=== PATIENT | female | born 1985 | race African-American/Black ===

== ENCOUNTER 2020-02-16 07:24 | Inpatient (IN) | payer BC, OTHER ==
[2020-02-16] MEDS ORDERED: WITCH HAZEL 50% (TUCKS) 40 PAD/JAR PAD TP PRN (08:08)
[2020-02-16] MEDS ORDERED: oxyCODONE HCL 5 MG TABLET PO PRN (08:08)
[2020-02-16] MEDS ORDERED: BENZOCAINE 20% 57 GM BOTTLE TP PRN (08:08)
[2020-02-16] MEDS ORDERED: BENZOCAINE 28 GM HEMORRHOIDAL OINTMENT TP PRN (08:08)
[2020-02-16] MEDS ORDERED: METHYLERGONOVINE MALEATE 0.2 MG/1 ML AMP IM PRN (08:08)
[2020-02-16] MEDS ORDERED: BISACODYL 10 MG SUPP.RECT RC PRN (08:08)
[2020-02-16] MEDS ORDERED: OXYTOCIN 30 UNITS in 0.9% NS 30 UNIT/500 ML INFUS.BAG IVPB SCH (08:15)
[2020-02-16] MEDS ORDERED: OXYTOCIN 20 UNITS in 0.9% NS 20 UNIT/1,000 ML INFUS.BAG IV SCH (08:15)
[2020-02-16] MEDS ORDERED: DEXTROSE 5%-LACTATED RINGERS 1,000 ML IV SCH (08:15)
[2020-02-16] MEDS ORDERED: AMPICILLIN - 2 GM in SODIUM CHLORIDE 100 ML IVPB ONE (08:30)
[2020-02-16 08:39] VITALS: BMI 27.4
[2020-02-16 09:31] LABS: BASO % 0.3 % (0-2.0); EOS % 0.1 % (0-4.5); HEMATOCRIT 36.2 % (32.4-45.2); HEMOGLOBIN 11.8 GM/dL (10.7-15.3); MCH 29.4 pg (25.7-33.7); MCHC 32.7 g/dl (32.0-36.0); MEAN CELL VOLUME 89.7 fl (80-96); MEAN PLT VOLUME 10.7 fl (7.5-11.1); MONO % 5.1 % (3.8-10.2); NEUT % 83.5 % (42.8-82.8); PLATELET COUNT 137 K/MM3 (134-434); RBC 4.03 M/mm3 (3.60-5.2); RDW 14.5 % (11.6-15.6); WHITE BLOOD COUNT 8.6 K/mm3 (4.0-10.0)
[2020-02-16 09:44] LABS: INR 0.96 (0.83-1.09); PROTHROMBIN TIME (PATIENT) 11.6 SEC (9.7-13.0)
[2020-02-16 09:46] LABS: ACTIVATED PTT 26.7 SECONDS (25.2-36.5)
[2020-02-16 09:57] LABS: POTASSIUM 3.8 mmol/L (3.5-5.1)
[2020-02-16 09:59] LABS: BLOOD UREA NITROGEN 4.8 mg/dL (7-18); CALCIUM 8.4 mg/dL (8.5-10.1)
[2020-02-16 10:02] LABS: CREATININE 0.6 mg/dL (0.55-1.3)
[2020-02-16] MEDS ORDERED: AMPICILLIN - 1 GM in SODIUM CHLORIDE 100 ML IVPB SCH (12:30)
[2020-02-16] MEDS: IBUPROFEN 600 MG TABLET (FP) PO PRN (13:00)
[2020-02-16] MEDS: ACETAMINOPHEN 325 MG TABLET (FP) PO PRN (13:01)
[2020-02-16 13:26] LABS: HIV INTERPRETATION NEGATIVE (NEGATIVE)
[2020-02-17] MEDS: ACETAMINOPHEN 325 MG TABLET (FP) PO PRN ×2 (02:33→10:04)
[2020-02-17] MEDS: IBUPROFEN 600 MG TABLET (FP) PO PRN ×2 (02:34→10:05)
[2020-02-17 07:45] LABS: BASO % 0.4 % (0-2.0); EOS % 0.5 % (0-4.5); HEMATOCRIT 31.7 % (32.4-45.2); HEMOGLOBIN 10.5 GM/dL (10.7-15.3); LYMPH % 16.5 % (8-40); MCH 29.6 pg (25.7-33.7); MEAN CELL VOLUME 89.7 fl (80-96); MEAN PLT VOLUME 10.8 fl (7.5-11.1); MONO % 7.3 % (3.8-10.2); NEUT % 75.3 % (42.8-82.8); PLATELET COUNT 126 K/MM3 (134-434); RBC 3.54 M/mm3 (3.60-5.2); WHITE BLOOD COUNT 8.9 K/mm3 (4.0-10.0)
[2020-02-17] MEDS: PRENATAL VITAMINS W/ FOLIC ACID TABLET (FP) PO SCH (10:06)
[2020-02-17] MEDS ORDERED: SENNOSIDES/DOCUSATE COMBO (SENNA PLUS) TABLET (UD) PO PRN (22:00)
[2020-02-17 23:05] VITALS: PULSE 82; TEMP 98.6
[2020-02-18] MEDS: IBUPROFEN 600 MG TABLET (FP) PO PRN (09:37)
[2020-02-18] MEDS: ACETAMINOPHEN 325 MG TABLET (FP) PO PRN (09:37)
[2020-02-18] MEDS: PRENATAL VITAMINS W/ FOLIC ACID TABLET (FP) PO SCH (09:37)
[2020-02-18 10:48] VITALS: BP 104/59
== END 2020-02-18 14:30 | disposition home or self-care (01) | DRG 807 ==
LOC: JLDR 07:24 → J3W 11:30
PROVIDERS: ADMIT Obstetrics & Gynecology; ATTEND Obstetrics & Gynecology
PROC: 10E0XZZ Delivery of Products of Conception, External Approach (ICD-10-PCS; principal; 2020-02-16)
PROC: 10907ZC Drainage of Amniotic Fluid, Therapeutic from Products of Conception, Via Natural or Artificial Opening (ICD-10-PCS; 2020-02-16)
DX: O99.824 Streptococcus B carrier state complicating childbirth (principal); Z37.0 Single live birth; O62.3 Precipitate labor; O70.0 First degree perineal laceration during delivery; O69.81X0 Labor and delivery complicated by cord around neck, without compression, not applicable or unspecified; O69.89X0 Labor and delivery complicated by other cord complications, not applicable or unspecified; Z3A.39 39 weeks gestation of pregnancy
CPT/HCPCS: 36415; 59409; 80048; 85025; 85610; 85730; 86780; 86850; 86900; 86901; 87389; C9803; U0003